=== PATIENT | female | born 1970 | race Caucasian/White ===

== ENCOUNTER 2020-08-28 10:54 | Emergency (ER) | payer SELFPAY ==
[~2020-08-28] VITALS: Ht 162.6 cm; Wt 95.3 kg
--- NOTE | 2020-08-28 11:05 | NUR ---
ED Nurse Note: PT TEO MAHARAJ C/O DIZINESS X 3 HRAS DENIES ANY NAUSEA OR VOMITING BS 391 IN THE FIELD.
[2020-08-28 11:07] VITALS: BP 128/86
[2020-08-28] MEDS ORDERED: Insulin Human Regular 100units/ml 3ml SUBQ ONE (11:30)
--- NOTE | 2020-08-28 11:30 | Emergency Room Report ---
History of Present Illness General Chief Complaint: Dizziness Source: Patient Present Illness HPI Disclaimer: Please note that this report is being documented using DRAGON technology. This can lead to erroneous entry secondary to incorrect interpretation by the dictating instrument. HPI: 50-year-old female history of diabetes presents for evaluation of lightheadedness. The patient was brought in by EMS from a [facility] after she states she felt weak and lightheaded. Symptoms resolved after laying flat. Fingerstick was elevated greater than 350. Has a history of diabetes but did not take any medication. Reports feeling dehydrated recently as she has been drinking enough water. Denies fever, chills, chest pain, palpitations, shortness of breath, abdominal pain, nausea, vomiting, dysuria or hematuria. She also complains of pain in the second toe on the right foot stating she stopped it 3 weeks ago and that it is deformed. Has not been evaluated. Had Covid in February 2020. Denies recent respiratory symptoms or exposure to COVID-19. PMH: Obesity, diabetes PSH: Left femur ORIF Allergies: Reviewed Social Hx: Denies Allergies: Coded Allergies: No Known Allergies (Unverified , 08/28/20) COVID-19 Screening Contact w/high risk pt: No Experienced COVID-19 symptoms?: No COVID-19 Testing performed INSULATOR HELPER: No Nursing Documentation-PMH Hx Hypertension: Yes Hx Diabetes: Yes Review of Systems All Other Systems: negative except mentioned in HPI Physical Exam Vital Signs Date Time Temp Pulse Resp B/P (MAP) Pulse Ox O2 Delivery O2 Flow Rate FiO2 08/28/20 10:49 98.1 83 18 128/86 (100) 96 Room Air General: Awake and alert, no acute distress HEENT: NC/AT. EOMI. Cardiovascular: RRR. S1 and S2 normal. No murmur appreciated Resp: Normal work of breathing. No cough, wheezing or crackles appreciated Abdomen: Abdomen is soft, nondistended. Obese abdomen. Nontender Skin: Intact. No abrasions, laceration or rash over the exposed skin MSK: Normal tone and bulk. Moving all extremities. Moderate edema over the PIPJ of the second toe of the right foot. Mildly tender. Neuro: Awake and alert. Mentating appropriately. Medical Decision Making Homeless Attestation Patient is homeless. Patient has been medically screened and is stable for outpatient follow up Diagnostic Impression: Primary Impression: Dehydration Additional Impression: Hyperglycemia ER Course 50-year-old female presents for evaluation of lightheadedness. Differential includes was not limited to electrolyte abnormality, dehydration, hyperglycemia, DKA, vertigo, ACS, arrhythmia among others. EKG on arrival is nonischemic and overall unremarkable. Most are hyperglycemia but no gap to suggest DKA. Patient treated with subcutaneous insulin and receiving IV fluids. She is hydrating orally as well. Labs returned within normal limits aside from testing positive for marijuana and elevated blood sugar. She was treated with subcutaneous insulin and blood sugar is improving. Well-appearing otherwise. X-ray of the foot does not show an acute fracture. X-ray of the chest unremarkable. Believe patient was just mildly dehydrated and is feeling better now. Stable for outpatient follow-up. Will refer to clinic to discuss her hyperglycemia and need for glycemic control medications. Copies of her labs provided. She understands and agrees with this treatment plan Laboratory Tests Test 08/28/20 11:50 08/28/20 12:10 White Blood Count 7.2 K/UL (4.8-10.8) Red Blood Count 4.75 M/UL (4.20-5.40) Hemoglobin 14.2 G/DL (12.0-16.0) Hematocrit 44.4 % (37.0-47.0) Mean Corpuscular Volume 93 FL (80-99) Mean Corpuscular Hemoglobin 30.0 PG (27.0-31.0) Mean Corpuscular Hemoglobin Concent 32.1 G/DL (32.0-36.0) Red Cell Distribution Width 12.8 % (11.6-14.8) Platelet Count 334 K/UL (150-450) Mean Platelet Volume 5.7 FL (6.5-10.1) L Neutrophils (%) (Auto) 58.5 % (45.0-75.0) Lymphocytes (%) (Auto) 31.3 % (20.0-45.0) Monocytes (%) (Auto) 6.7 % (1.0-10.0) Eosinophils (%) (Auto) 2.0 % (0.0-3.0) Basophils (%) (Auto) 1.6 % (0.0-2.0) Sodium Level 138 MMOL/L (136-145) Potassium Level 3.9 MMOL/L (3.5-5.1) Chloride Level 102 MMOL/L (98-107) Carbon Dioxide Level 32 MMOL/L (21-32) Anion Gap 4 mmol/L (5-15) L Blood Urea Nitrogen 10 mg/dL (7-18) Creatinine 0.8 MG/DL (0.55-1.30) Estimated Glomerular Filtration Rate > 60 mL/min (>60) Glucose Level 340 MG/DL (74-106) H Calcium Level 8.9 MG/DL (8.5-10.1) Magnesium Level 2.2 MG/DL (1.8-2.4) Total Bilirubin 0.3 MG/DL (0.2-1.0) Aspartate Amino Transferase (AST) 19 U/L (15-37) Alanine Aminotransferase (ALT) 28 U/L (12-78) Alkaline Phosphatase 62 U/L (46-116) Troponin I 0.000 ng/mL (0.000-0.056) Pro-B-Type Natriuretic Peptide 70 pg/mL (0-125) Total Protein 8.0 G/DL (6.4-8.2) Albumin 3.5 G/DL (3.4-5.0) Globulin 4.5 g/dL Albumin/Globulin Ratio 0.8 (1.0-2.7) L Serum Alcohol < 3 mg/dL Urine Opiates Screen Negative (NEGATIVE) Urine Barbiturates Screen Negative (NEGATIVE) Phencyclidine (PCP) Screen Negative (NEGATIVE) Urine Amphetamines Screen Negative (NEGATIVE) Urine Benzodiazepines Screen Negative (NEGATIVE) Urine Cocaine Screen Negative (NEGATIVE) Urine Marijuana (THC) Screen Positive (NEGATIVE) H EKG Diagnostic Results Troponin ordered: Yes When was troponin ordered?: Aug 28, 2020 EKG Time: 11:12 Rate: normal Rhythm: NSR ST Segments: no acute changes Other Impression Sinus rhythm, normal axis, normal intervals, QTC [address] segment changes. Rhythm Strip Diag. Results Rhythm Strip Time: 11:13 EP Interpretation: yes Rate: 80s Rhythm: NSR, no PVC's, no ectopy Chest X-Ray Diagnostic Results Chest X-Ray Diagnostic Results : Chest X-Ray Ordered: Yes # of Views/Limited/Complete: 1 View Indication: Other - Dizziness EP Interpretation: Yes Interpretation: no consolidation, no effusion, no pneumothorax, no acute cardiopulmonary disease Impression: No acute disease Electronically Signed by: Electronically signed by Dr. Harry Casas MD Other X-Ray Diagnostic Results Other X-Ray Diagnostic Results : X-Ray ordered: Right foot # of Views/Limited Vs Complete: Complete Indication: Pain EP Interpretation: Yes Interpretation: no dislocation, no soft tissue swelling, no fractures Impression: No acute disease Electronically Signed by: Electronically signed by Dr. Harry Casas MD Last Vital Signs Date Time Temp Pulse Resp B/P (MAP) Pulse Ox O2 Delivery O2 Flow Rate FiO2 08/28/20 11:07 98.1 16 128/86 96 Room Air 08/28/20 11:06 80 Disposition: HOME, SELF-CARE Condition: Stable Scripts No Active Prescriptions or Reported Meds Harry Casas MD Aug 28, 2020 11:30
[2020-08-28 12:16] VITALS: BP_SYST 145; BP_SYST 149; BP_SYST 152; BP_DIAS 63; BP_DIAS 67; BP_DIAS 72
[2020-08-28 12:23] LABS: BASOPHILS % (AUTO) 1.6 % (0.0-2.0); HEMATOCRIT 44.4 % (37.0-47.0); HEMOGLOBIN 14.2 G/DL (12.0-16.0); LYMPHOCYTES % (AUTO) 31.3 % (20.0-45.0); MEAN CORPUSCULAR VOLUME 93 FL (80-99); MONOCYTES % (AUTO) 6.7 % (1.0-10.0); NEUTROPHILS % (AUTO) 58.5 % (45.0-75.0); PLATELET COUNT 334 K/UL (150-450); RED BLOOD COUNT 4.75 M/UL (4.20-5.40); RED CELL DISTRIBUTION WIDTH 12.8 % (11.6-14.8); WHITE BLOOD COUNT 7.2 K/UL (4.8-10.8)
[2020-08-28 12:38] LABS: ANION GAP 4 mmol/L (5-15); BLOOD UREA NITROGEN 10 mg/dL (7-18); CALCIUM 8.9 MG/DL (8.5-10.1); CARBON DIOXIDE 32 MMOL/L (21-32); CHLORIDE 102 MMOL/L (98-107); CREATININE 0.8 MG/DL (0.55-1.30); POTASSIUM 3.9 MMOL/L (3.5-5.1); SODIUM 138 MMOL/L (136-145)
[2020-08-28 12:49] LABS: ALANINE AMINOTRANSFERASE 28 U/L (12-78); ALBUMIN 3.5 G/DL (3.4-5.0); ALBUMIN/GLOBULIN RATIO 0.8 (1.0-2.7); ALKALINE PHOSPHATASE 62 U/L (46-116); ASPARTATE AMINO TRANSFERASE 19 U/L (15-37); BILIRUBIN,TOTAL 0.3 MG/DL (0.2-1.0)
[2020-08-28 13:42] VITALS: BP 139/74
--- NOTE | 2020-08-28 13:42 | NUR ---
ED Nurse Note: Pt cleared by ERMD for discharge. DC instructions was given and explained to pt and verbalized understanding of teachings. All medical deviecs such as ID band and IV line removed. Pt is AAO x4, ambulatory and left with all personal belongings.
--- NOTE | 2020-08-28 14:23 | Diagnostic Imaging Report ---
Indication: Foot pain, injury Technique: 3 views of the right foot Comparison: None Findings: No acute fractures identified. Lisfranc alignment of the foot is maintained. There is pes planus. No ankle joint effusion. No radiopaque foreign body. Impression: No acute fracture or dislocation.
--- NOTE | 2020-08-28 15:14 | Diagnostic Imaging Report ---
Indication: Weakness, shortness of breath Technique: XRAY Chest 1v Comparison: None Findings: Exam slightly limited due to underpenetration, likely in part related to body habitus. Within these limitations: No definite focal airspace consolidation. No pleural effusion, pneumothorax or radiographic evidence to suggest pulmonary edema. Heart size is in the upper limits normal. Mediastinal contours are sharp. There is mild eventration of the right hemidiaphragm. No acute osseous abnormality appreciated. Impression: Limited exam as above. No definite radiographic evidence of acute cardiopulmonary disease.
--- NOTE | 2020-08-30 20:41 | Cardiology Report ---
APPROVED REPORT EKG Measurement Heart [id number] CT [id number] <Conclusion> Normal sinus rhythm Normal ECG
== END 2020-08-28 13:45 | disposition home or self-care (01) ==
LOC: EDBD 10:54 → EMR 11:20
DX: E86.0 Dehydration (principal); E11.65 Type 2 diabetes mellitus with hyperglycemia; I10 Essential (primary) hypertension; F12.90 Cannabis use, unspecified, uncomplicated; E66.9 Obesity, unspecified; Z86.19 Personal history of other infectious and parasitic diseases; Z68.36 Body mass index [BMI] 36.0-36.9, adult
CPT/HCPCS: 36415; 71045; 73630; 80053; 80307; 82962; 83735; 83880; 84484; 85025; 93005; 96360; 99284; G0480; J1815; J7030